=== PATIENT | male | born 1935 | race Caucasian/White ===

== ENCOUNTER 2017-10-13 02:09 | Inpatient (IN) | payer MEDICARE ==
[~2017-10-13] VITALS: Ht 160 cm; Wt 70.3 kg
[2017-10-13] VITALS (7 sets, daily range): BP systolic 121–161; BP diastolic 58–82
[2017-10-13] MEDS ORDERED: Nitroglycerin Subl 0.4mg tab SL ONE (02:15)
[2017-10-13] MEDS ORDERED: Aspirin Baby 81mg ORAL ONE (02:15)
[2017-10-13] MEDS ORDERED: ATORVASTATIN CA20 MG ORAL (02:19)
[2017-10-13] MEDS ORDERED: CEPHALEXIN500 MG ORAL (02:19)
--- NOTE | 2017-10-13 02:20 | Emergency Room Report ---
History of Present Illness General Source: Patient, EMS Present Illness HPI This is an 82-year-old male with a history of CAD with five-vessel bypass 4 years ago. Onset for week. He has been coughing productive of white sputum. Worse tonight. Blood pressure jumped up over 200. Per EMS he was wheezing and very tight. They gave him 2 rounds of albuterol. He said he fell better now. No swelling. No chest pain. Worse with exertion. Worse with lying flat. Allergies: Coded Allergies: No Known Allergies (Unverified , 10/13/17) Patient History Past Medical History: see triage record, old chart reviewed, HTN, DC, CAD Past Surgical History: CABG Pertinent Family History: none Social History: Denies: smoking Immunizations: other Reviewed Nursing Documentation: PMH: Agreed, PSxH: Agreed Review of Systems Eye: Denies: eye pain, blurred vision ENT: Denies: ear pain, nose congestion, throat swelling Respiratory: Reports: cough, shortness of breath, [place] Cardiovascular: Denies: chest pain, palpitations Gastrointestinal: Denies: abdominal pain, diarrhea, nausea, vomiting Musculoskeletal: Denies: back pain, joint pain Skin: Denies: rash Neurological: Denies: headache, numbness Endocrine: Denies: increased thirst, increased urine Hematologic/Lymphatic: Denies: easy bruising All Other Systems: negative except mentioned in HPI Physical Exam Sp02 EP Interpretation: reviewed, normal General Appearance: well appearing, alert, moderate distress Head: normocephalic, atraumatic Eyes: bilateral eye PERRL, bilateral eye EOMI ENT: hearing grossly normal, normal pharynx Neck: full range of motion, supple, no meningismus Respiratory: chest non-tender, respiratory distress, accessory muscle use, rales, wheezing Cardiovascular #1: regular rate, rhythm, no murmur Gastrointestinal: normal bowel sounds, non tender, no mass, no organomegaly, no bruit, non-distended Musculoskeletal: back normal, normal range of motion, swelling - Trace edema Psychiatric: mood/affect normal Skin: warm/dry Medical Decision Making Diagnostic Impression: Primary Impression: Respiratory distress Additional Impressions: Acute exacerbation of CHF (congestive heart failure) Qualified Codes: I50.9 - Heart failure, unspecified Acute bronchitis with bronchospasm ER Course Patient presents with respiratory distress. He has rales and wheezing. He diuresed well. He diuresed over a liter. [place] better now. Breathing treatment also help. Able to wean him off of oxygen to 2 L nasal cannula. Blood pressure also improved. Will admit for further workup. Differential include ACS, PE, dissection, pneumonia to name a few. Lab Results Impression labs with elevated BNP EKG Diagnostic Results Rate: normal Rhythm: NSR ST Segments: other - NSST changes ASA given to the pt in ED: Yes Rhythm Strip Diag. Results Rhythm Strip Time: 02:19 Rate: 85 Rhythm: NSR Chest X-Ray Diagnostic Results Chest X-Ray Diagnostic Results : Chest X-Ray Ordered: Yes # of Views/Limited/Complete: 1 View Indication: Shortness of Breath EP Interpretation: Yes Interpretation: no consolidation, no effusion, no pneumothorax, other - Cardiomegaly with vascular congestion Impression: Other - chf Electronically Signed by: Keith Wiley MD Status: improved Disposition: ADMITTED INPATIENT Condition: Serious KIETH WILEY M.D. Oct 13, 2017 02:20
[2017-10-13 03:35] LABS: BASOPHILS % (AUTO) 1.5 % (0.0-2.0); EOSINOPHILS % (AUTO) 4.9 % (0.0-3.0); HEMATOCRIT 31.1 % (42.0-52.0); HEMOGLOBIN 13.8 G/DL (14.2-18.0); LYMPHOCYTES % (AUTO) 32.7 % (20.0-45.0); MEAN CORPUSCULAR VOLUME 92 FL (80-99); MONOCYTES % (AUTO) 9.9 % (1.0-10.0); PLATELET COUNT 203 K/UL (150-450); RED BLOOD COUNT 3.39 M/UL (4.70-6.10); RED CELL DISTRIBUTION WIDTH 11.1 % (11.6-14.8); WHITE BLOOD COUNT 8.2 K/UL (4.8-10.8)
[2017-10-13 03:36] LABS: APPEARANCE,URINE CLEAR; BILIRUBIN, URINE NEGATIVE (NEGATIVE); COLOR,URINE PALE YELLOW; GLUCOSE, URINE (UA) NEGATIVE (NEGATIVE); KETONES,URINE NEGATIVE (NEGATIVE); LEUKOCYTE ESTERASE ,URINE NEGATIVE (NEGATIVE); NITRITE,URINE NEGATIVE (NEGATIVE); PH,URINE 6 (4.5-8.0); PROTEIN,URINE NEGATIVE (NEGATIVE); UROBILINOGEN,URINE NORMAL MG/DL (0.0-1.0)
[2017-10-13 03:40] LABS: ANION GAP 8 mmol/L (5-15); BLOOD UREA NITROGEN 20 mg/dL (7-18); CALCIUM 9.3 MG/DL (8.5-10.1); CARBON DIOXIDE 29 MMOL/L (21-32); CHLORIDE 102 MMOL/L (98-107); CREATININE 1.3 MG/DL (0.55-1.30); POTASSIUM 3.6 MMOL/L (3.5-5.1); SODIUM 139 MMOL/L (136-145)
[2017-10-13 03:53] LABS: ALANINE AMINOTRANSFERASE 8 U/L (12-78); ALBUMIN 3.4 G/DL (3.4-5.0); ALBUMIN/GLOBULIN RATIO 0.8 (1.0-2.7); ALKALINE PHOSPHATASE 75 U/L (46-116); ASPARTATE AMINO TRANSFERASE 20 U/L (15-37); BILIRUBIN,TOTAL 0.4 MG/DL (0.2-1.0); CKMB 3.1 NG/ML (0.0-3.6); CREATINE KINASE 120 U/L (26-308)
[2017-10-13] MEDS ORDERED: Solu-MEDROL 125mg Inj IVP ONE (04:00)
[2017-10-13] MEDS ORDERED: Albuterol/Ipratropium 3ml neb HHN PRN (07:00)
[2017-10-13] MEDS ORDERED: Miralax 17gm pkt ORAL PRN (07:00)
[2017-10-13] MEDS: Heparin 5000 units/ml inj SUBQ SCH ×2 (08:20→20:38)
--- NOTE | 2017-10-13 10:03 | Diagnostic Imaging Report ---
Indication: Dyspnea Comparison: None A single view chest radiograph was obtained. Findings: No definite infiltrate or pulmonary vascular congestion identified. Sternotomy noted. The heart is enlarged. The aorta is mildly enlarged consistent with atherosclerotic vascular disease. The bones are osteopenic. Impression: No acute disease
--- NOTE | 2017-10-13 12:11 | History and Physical ---
History of Present Illness General Date patient seen: Oct 13, 2017 Reason for Hospitalization: Dyspnea/Respdistress Present Illness HPI 82-year-old male with a history of CAD with five-vessel bypass 4 years ago, presented to ER with CC of coughing productive of white sputum. Worse tonight. His Blood pressure was over 200. Per EMS he was wheezing and very tight. They gave him 2 rounds of albuterol. . No chest pain. Worse with exertion. Worse with lying flat. Didn't have any fever and chills. Pt is admitted to telemetry for dyspnea and hypertensive emergency. Allergies: Coded Allergies: No Known Allergies (Unverified , 10/13/17) Medication History Scheduled Atorvastatin Calcium* (Atorvastatin Calcium*), 20 MG ORAL BEDTIME, (Reported) Cephalexin* (Keflex*), 500 MG ORAL EVERY 12 HOURS, (Reported) Patient History Healthcare decision maker Resuscitation status Full Code Advanced Directive on File Past Medical/Surgical History Past Medical/Surgical History: (1) CAD (coronary artery disease) (2) Hypertension Review of Systems Respiratory: Reports: cough, orthopnea, shortness of breath, wheezing All Other Systems: negative except mentioned in HPI Physical Exam General Appearance: WD/WN Lines, tubes and drains: peripheral, central line HEENT: normocephalic, atraumatic, PERRL Neck: normal alignment, supple, limited range of motion Respiratory/Chest: chest wall non-tender, normal breath sounds Cardiovascular/Chest: normal peripheral pulses, normal rate, regular rhythm Abdomen: normal bowel sounds, soft Genitourinary/Rectal: normal genital exam, normal rectal exam Extremities: normal range of motion Skin Exam: normal pigmentation 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, no motor/sensory deficits Last 24 Hour Vital Signs Date Time Temp Pulse Resp B/P (MAP) Pulse Ox O2 Delivery O2 Flow Rate FiO2 10/13/17 08:00 83 10/13/17 08:00 97.2 88 18 141/75 97 Nasal Cannula 2.0 97.2 10/13/17 06:13 98.2 79 20 151/64 99 Nasal Cannula 2.0 98.2 10/13/17 05:35 79 20 151/64 99 Nasal Cannula 2.0 10/13/17 03:47 83 23 121/68 100 Simple Mask 5.0 10/13/17 02:43 84 16 Simple Mask 5.0 10/13/17 02:43 98.2 84 16 161/69 97 Simple Mask 5.0 98.2 10/13/17 02:38 161/69 10/13/17 02:15 98.2 84 16 184/73 97 Simple Mask 5.0 98.2 Intake and Output 10/12/17 10/13/17 19:00 07:00 Intake Total 0 ml Output Total 1975 ml Balance -1975 ml Intake Oral 0 ml Output Urine Total 1975 ml Laboratory Tests Test 10/13/17 02:25 10/13/17 03:00 10/13/17 09:00 White Blood Count 8.2 K/UL (4.8-10.8) Red Blood Count 3.39 M/UL (4.70-6.10) L Hemoglobin 13.8 G/DL (14.2-18.0) L Hematocrit 31.1 % (42.0-52.0) L Mean Corpuscular Volume 92 FL (80-99) Mean Corpuscular Hemoglobin 40.7 PG (27.0-31.0) H Mean Corpuscular Hemoglobin Concent 44.3 G/DL (32.0-36.0) H Red Cell Distribution Width 11.1 % (11.6-14.8) L Platelet Count 203 K/UL (150-450) Mean Platelet Volume 8.6 FL (6.5-10.1) Neutrophils (%) (Auto) 51.0 % (45.0-75.0) Lymphocytes (%) (Auto) 32.7 % (20.0-45.0) Monocytes (%) (Auto) 9.9 % (1.0-10.0) Eosinophils (%) (Auto) 4.9 % (0.0-3.0) H Basophils (%) (Auto) 1.5 % (0.0-2.0) Prothrombin Time 10.3 SEC (9.30-11.50) Prothromb Time International Ratio 1.0 (0.9-1.1) Activated Partial Thromboplast Time 28 SEC (23-33) Sodium Level 139 MMOL/L (136-145) Potassium Level 3.6 MMOL/L (3.5-5.1) Chloride Level 102 MMOL/L (98-107) Carbon Dioxide Level 29 MMOL/L (21-32) Anion Gap 8 mmol/L (5-15) Blood Urea Nitrogen 20 mg/dL (7-18) H Creatinine 1.3 MG/DL (0.55-1.30) Estimat Glomerular Filtration Rate mL/min (>60) Glucose Level 113 MG/DL (74-106) H Calcium Level 9.3 MG/DL (8.5-10.1) Total Bilirubin 0.4 MG/DL (0.2-1.0) Aspartate Amino Transf (AST/SGOT) 20 U/L (15-37) Alanine Aminotransferase (ALT/SGPT) 8 U/L (12-78) L Alkaline Phosphatase 75 U/L (46-116) Total Creatine Kinase 120 U/L (26-308) Creatine Kinase MB 3.1 NG/ML (0.0-3.6) Creatine Kinase MB Relative Index 2.5 Troponin I 0.008 ng/mL (0.000-0.056) 0.012 ng/mL (0.000-0.056) Pro-B-Type Natriuretic Peptide 380 pg/mL (0-125) H Total Protein 7.5 G/DL (6.4-8.2) Albumin 3.4 G/DL (3.4-5.0) Globulin 4.1 g/dL Albumin/Globulin Ratio 0.8 (1.0-2.7) L Urine Color Pale yellow Urine Appearance Clear Urine pH 6 (4.5-8.0) Urine Specific [place] 1.010 (1.005-1.035) Urine Protein Negative (NEGATIVE) Urine Glucose (UA) Negative (NEGATIVE) Urine Ketones Negative (NEGATIVE) Urine Occult Blood Negative (NEGATIVE) Urine Nitrite Negative (NEGATIVE) Urine Bilirubin Negative (NEGATIVE) Urine Urobilinogen Normal MG/DL (0.0-1.0) Urine Leukocyte Esterase Negative (NEGATIVE) Height (Feet): 5 Height (Inches): 3.00 Weight (Pounds): 160 Medications Current Medications Medications (Trade) Dose Ordered Sig/Isma Route PRN Reason Start Time Stop Time Status Last Admin Dose Admin Acetaminophen (Tylenol) 650 mg Q4H PRN ORAL Fever 10/13/17 07:00 11/12/17 06:59 Albuterol/ Ipratropium (Albuterol/ Ipratropium) 3 ml Q4H PRN HHN Shortness of Breath 10/13/17 07:00 10/18/17 06:59 Atorvastatin Calcium (Lipitor) 20 mg BEDTIME ORAL 10/13/17 21:00 11/12/17 20:59 Dextrose (Dextrose 50%) STAT PRN IV Hypoglycemia 10/13/17 07:00 11/12/17 06:59 Furosemide (Lasix) 40 mg EVERY 8 HOURS IV 10/13/17 14:00 11/12/17 13:59 10/13/17 08:21 Heparin Sodium (Porcine) (Heparin 5000 units/ml) 5,000 units EVERY 12 HOURS SUBQ 10/13/17 09:00 11/12/17 08:59 10/13/17 08:20 Ondansetron HCl (Zofran) 4 mg Q6H PRN IVP Nausea & Vomiting 10/13/17 07:00 11/12/17 06:59 Polyethylene Glycol (Miralax) 17 gm DAILYPRN PRN ORAL Constipation 10/13/17 07:00 11/12/17 06:59 Temazepam (Restoril) 15 mg HSPRN PRN ORAL Insomnia 10/13/17 21:00 10/20/17 20:59 Assessment/Plan Problem List: (1) Acute respiratory failure ICD Codes: J96.00 - Acute respiratory failure, unspecified whether with hypoxia or hypercapnia SNOMED: 57905482 (2) Bronchitis ICD Codes: J40 - Bronchitis, not specified as acute or chronic SNOMED: 56879247 (3) Acute bronchitis with bronchospasm ICD Codes: J20.9 - Acute bronchitis, unspecified SNOMED: 74013652 (4) Hypertension ICD Codes: I10 - Essential (primary) hypertension SNOMED: 96126952 (5) CAD (coronary artery disease) ICD Codes: I25.10 - Atherosclerotic heart disease of [place] coronary artery without angina pectoris SNOMED: 59178434 Assessment/Plan respiratory treatment antitussives echo BP monitor cardio evaluation. TITA ALATORRE Oct 13, 2017 12:11
--- NOTE | 2017-10-13 12:34 | Cardiology Progress Note ---
Assessment/Plan Assessment/Plan [id number] cough bronchospasm viral uri ? post nasal drip hyperlipidemia cad s/p cabg b b use prostate cancer s/p resection hold bb uses arb for bp if needed will reviw echo repeat k ekg Objective Last 24 Hour Vital Signs Date Time Temp Pulse Resp B/P (MAP) Pulse Ox O2 Delivery O2 Flow Rate FiO2 10/13/17 08:00 83 10/13/17 08:00 97.2 88 18 141/75 97 Nasal Cannula 2.0 97.2 10/13/17 06:13 98.2 79 20 151/64 99 Nasal Cannula 2.0 98.2 10/13/17 05:35 79 20 151/64 99 Nasal Cannula 2.0 10/13/17 03:47 83 23 121/68 100 Simple Mask 5.0 10/13/17 02:43 84 16 Simple Mask 5.0 10/13/17 02:43 98.2 84 16 161/69 97 Simple Mask 5.0 98.2 10/13/17 02:38 161/69 10/13/17 02:15 98.2 84 16 184/73 97 Simple Mask 5.0 98.2 Intake and Output 10/12/17 10/13/17 19:00 07:00 Intake Total 0 ml Output Total 1975 ml Balance -1975 ml Intake Oral 0 ml Output Urine Total 1975 ml Laboratory Tests Test 10/13/17 02:25 10/13/17 03:00 10/13/17 09:00 White Blood Count 8.2 K/UL (4.8-10.8) Red Blood Count 3.39 M/UL (4.70-6.10) L Hemoglobin 13.8 G/DL (14.2-18.0) L Hematocrit 31.1 % (42.0-52.0) L Mean Corpuscular Volume 92 FL (80-99) Mean Corpuscular Hemoglobin 40.7 PG (27.0-31.0) H Mean Corpuscular Hemoglobin Concent 44.3 G/DL (32.0-36.0) H Red Cell Distribution Width 11.1 % (11.6-14.8) L Platelet Count 203 K/UL (150-450) Mean Platelet Volume 8.6 FL (6.5-10.1) Neutrophils (%) (Auto) 51.0 % (45.0-75.0) Lymphocytes (%) (Auto) 32.7 % (20.0-45.0) Monocytes (%) (Auto) 9.9 % (1.0-10.0) Eosinophils (%) (Auto) 4.9 % (0.0-3.0) H Basophils (%) (Auto) 1.5 % (0.0-2.0) Prothrombin Time 10.3 SEC (9.30-11.50) Prothromb Time International Ratio 1.0 (0.9-1.1) Activated Partial Thromboplast Time 28 SEC (23-33) Sodium Level 139 MMOL/L (136-145) Potassium Level 3.6 MMOL/L (3.5-5.1) Chloride Level 102 MMOL/L (98-107) Carbon Dioxide Level 29 MMOL/L (21-32) Anion Gap 8 mmol/L (5-15) Blood Urea Nitrogen 20 mg/dL (7-18) H Creatinine 1.3 MG/DL (0.55-1.30) Estimat Glomerular Filtration Rate mL/min (>60) Glucose Level 113 MG/DL (74-106) H Calcium Level 9.3 MG/DL (8.5-10.1) Total Bilirubin 0.4 MG/DL (0.2-1.0) Aspartate Amino Transf (AST/SGOT) 20 U/L (15-37) Alanine Aminotransferase (ALT/SGPT) 8 U/L (12-78) L Alkaline Phosphatase 75 U/L (46-116) Total Creatine Kinase 120 U/L (26-308) Creatine Kinase MB 3.1 NG/ML (0.0-3.6) Creatine Kinase MB Relative Index 2.5 Troponin I 0.008 ng/mL (0.000-0.056) 0.012 ng/mL (0.000-0.056) Pro-B-Type Natriuretic Peptide 380 pg/mL (0-125) H Total Protein 7.5 G/DL (6.4-8.2) Albumin 3.4 G/DL (3.4-5.0) Globulin 4.1 g/dL Albumin/Globulin Ratio 0.8 (1.0-2.7) L Urine Color Pale yellow Urine Appearance Clear Urine pH 6 (4.5-8.0) Urine Specific [place] 1.010 (1.005-1.035) Urine Protein Negative (NEGATIVE) Urine Glucose (UA) Negative (NEGATIVE) Urine Ketones Negative (NEGATIVE) Urine Occult Blood Negative (NEGATIVE) Urine Nitrite Negative (NEGATIVE) Urine Bilirubin Negative (NEGATIVE) Urine Urobilinogen Normal MG/DL (0.0-1.0) Urine Leukocyte Esterase Negative (NEGATIVE) CALLI MOBLEY Oct 13, 2017 12:34
[2017-10-13] MEDS ORDERED: Promethazine/Codeine 5ml UD ORAL PRN (13:15)
[2017-10-13] MEDS: Metoprolol Tartrate 50mg tab ORAL SCH (13:33)
--- NOTE | 2017-10-13 18:00 | Consultation ---
DATE OF CONSULTATION: 10/13/2017 CARDIOLOGY CONSULTATION CONSULTING PHYSICIAN: Edison Gonzalez M.D. REFERRING PHYSICIAN: Uche Silva M.D. REASON FOR REFERRAL: Shortness of breath and possible heart failure. HISTORY OF PRESENT ILLNESS: This is an elderly gentleman, who has apparently had an ill with some kind of viral infection at home approximately two weeks ago. He apparently contracted same symptoms, mainly with coughing and sputum production. This has been going on for some time now. However, over the past two days, he started having some wheezing and last night when he tried to lay down, he had significant amount of coughing that would not stop and subsequently even when he sat up, he continued to cough. He really does not have any shortness of breath. He denies having any shortness of breath. No PND. No orthopnea. He does not have any dyspnea on exertion. No pain, pressure, tightness, or heaviness in his chest that he had prior to his coronary artery bypass grafting at [facility] four years ago, but just significant amount of coughing. No fevers or chills. No night sweats. No body aches or pains. He had seen an ear, nose, and throat specialist initially that apparently ended up having a chest x-ray. He was told there was no evidence of pneumonia. At that time, the patient was not treated with any antibiotics, but he continued to worsen to the point that he finally called the paramedics last night because of his symptoms and brought to the emergency room here at [facility]. Concern about possibility of congestive heart failure was subsequently raised. The patient has had treatment. He is completely improved at his baseline right now and he wants to go home and he no longer has any coughing or wheezing, as he did last night and again, he denied any pain, pressure, tightness, or discomfort of any kind. No symptoms similar to his prior to coronary bypass grafting. 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 He has had a non-ST elevation myocardial infarction at that time. He does have a history of prostate cancer that was resected and he was fine. No stroke. No hepatitis or tuberculosis. No asthma or emphysema. No history of ulcers. No kidney problems, liver problems, thyroid problems, or anemia. He does have a history of arthritis. No HIV, AIDS, or blood clots. SOCIAL HISTORY: He does not smoke or drink at this time and never did. He used to work as a chiropractor. REVIEW OF SYSTEMS: GASTROINTESTINAL: He denies any nausea, vomiting, diarrhea, or constipation. No bloody or black stools. GENITOURINARY: He denies. He has one or two nocturic episodes at night. PULMONARY SYSTEM: Positive for coughing, wheezing, and sputum production. CONSTITUTIONAL: No fevers, chills, or night sweats. NEUROLOGIC: Negative. MUSCULOSKELETAL: Occasional aches and pains. PHYSICAL EXAMINATION: GENERAL: Shows him to be elderly gentleman, in no respiratory distress. VITAL SIGNS: Initial blood pressure 184/73 and right now is 141/75. HEENT: Unremarkable. NECK: Supple. There is no jugular venous distention. LUNGS: He has few crackles noted on the left side. There is no wheezing at this time on my examination. CARDIAC: Regular rate and rhythm. Increased P2 component. Faint holosystolic regurgitant murmur is noted. ABDOMEN: Soft and nontender. Positive bowel sounds. EXTREMITIES: There is no edema. Pulses are palpable, although those seemed to be decreased in the dorsalis pedis and radial bilaterally. LABORATORY DATA: His labs show white count of 8.2, hemoglobin 13.8, and platelet count of 203,000. His sodium is 139, potassium 3.6, chloride 102, bicarbonate 29, BUN of 20, creatinine 1.3, and glucose of 113. Troponin is negative on two separate occasions. ProBNP is only 380. His albumin of 3.4. INR 1.0 and a PTT of 28. His urinalysis is fairly unremarkable. A chest x-ray was performed in the emergency room. Official reading by radiologist today indicates no acute disease. No evidence of infiltrate or pulmonary vascular congestion. He does have a sternotomy and has an enlarged heart. The aorta is mildly enlarged consistent with atherosclerotic changes. His electrocardiogram shows normal sinus rhythm with leftward axis. No significant ST or T wave abnormalities from last night. No repeat EKG available from today. ASSESSMENT AND PLAN: 1. Probable viral upper respiratory tract infection with coughing, possibly postnasal drip. 2. Coronary disease, status post coronary artery bypass grafting. 3. Questionable heart failure with minimally if any abnormality on proBNP and negative chest x-ray. 4. History of hyperlipidemia. PLAN: Dr. Silva, this patient was seen in cardiac consultation. The patient feels fine at this time. His examination today does not show any wheezes. He does have some basilar crackles on the left side only and he has an echocardiogram pending. He does have some increased P2 component suggestive of pulmonary hypertension. Echocardiogram will be reviewed to see if any evidence of wall motion abnormalities or pulmonary hypertension. He has been on some beta-blockers, which may have made his coughing worse. In either case, he seems not to have any wheezing at this time. He is anxious to go home. He probably should walk around the nurse's station some. He did get some diuretics in the emergency room last night as well as some beta-agonist inhalers that may have been helping him with his symptoms. I will follow the patient along, and recommendations were provided depending on the outcomes recently, but the patient has Dr. Haque as canvas marker whom I talked with earlier today and I will communicate with after all his findings are completed for possibility of being discharged and followup with him as outpatient. It may be best to avoid beta-blockers and maybe use an ARB or MADONNA inhibitors for his blood pressure control especially if there is any issues with his echocardiogram. Dr. Silva, thank you for allowing me to participate in the care of this patient. Edison Gonzalez M.D. DR: AZAM JOB#: [id number] CC:
--- NOTE | 2017-10-13 18:07 | Cardiology Report ---
APPROVED REPORT EXAM: Two-dimensional and M-mode echocardiogram with Doppler and color Doppler. INDICATION LV FUNCTION M-Mode DIMENSIONS IVSd1.5 (0.7-1.1cm)Left Atrium (MM)3.2 (1.6-4.0cm) LVDd5.7 (3.5-5.6cm)Aortic Root3.6 (2.0-3.7cm) PWd1.2 (0.7-1.1cm)Aortic Cusp Exc.1.8 (1.5-2.0cm) IVSs1.9 cm LVDs3.8 (2.5-4.0cm) PWs1.5 cm Normal left ventricular chamber size, systolic function and wall motion except hypokinesis of the proximal to mid posterior and inferior mccarthy Left ventricular ejection fraction estimated to be 60-65 %. No evidence left ventricular hypertrophy. No evidence of pericardial effusion. Pleural effusion . All other chamber sizes is within normal limits. Focal aortic valve sclerosis with adequate cusp excursion. Mildly Thickened mitral valve leaflets with normal excursion. Mitral annulus and aortic root calcification. Pulmonic valve not well visualized. Normal tricuspid valve structure. IVC at normal size with physiologic collapse . A color flow and spectral Doppler study was performed and revealed: No aortic regurgitation. Trace mitral regurgitation. Mitral diastolic velocities suggest reduced left ventricular relaxation c/w mild LV diastolic dysfunction (Grade I ) Trace tricuspid regurgitation . Tricuspid systolic velocities suggests peak right ventricular systolic pressure of 19 mmHg, No Pulmonic regurgitation present.
--- NOTE | 2017-10-13 20:30 | Consultation ---
DATE OF CONSULTATION: 10/13/2017 HISTORY: The patient is an 82-year-old [place] male with a history of multiple medical problems including CAD and hypertension, COPD, who has been admitted to the hospital due to dyspnea and respiratory distress. The patient presented with anxiety the last night. The patient has anxiety, coughing, wheezing and stated that he has chest tightness and unable to relax. At times, he has panic attack-like symptoms. PAST PSYCHIATRIC HISTORY: He has a history of anxiety disorder, never been treated. PAST MEDICAL HISTORY: Significant for CAD and hypertension. ALLERGIES: No known drug allergies. SUBSTANCE ABUSE HISTORY: No known history of illicit drug use or alcohol. MENTAL STATUS EXAMINATION: The patient alert and oriented x4. Mood is in neutral during the evaluation. Affect is constricted. Congruent with mood. Thought process is concrete. Thought content, no suicidal or homicidal ideation. ASSESSMENT: AXIS I Anxiety disorder. AXIS II Deferred. AXIS III As above. AXIS IV Low. AXIS V Global assessment of functioning is 50. PLAN: 1. The patient may benefit from low-dose of SSRI. I was hesitant to prescribe Ativan as the patient has wheezing. 2. We will continue to follow and readjust the medications. Rosenda Butts M.D. DR: VIKTORIA JOB#: [id number] CC:
[2017-10-13] MEDS ORDERED: Atorvastatin 20mg tab ORAL SCH (21:00)
[2017-10-14] VITALS: BP 133/77
[2017-10-14 04:00] VITALS: BP 140/74
[2017-10-14 07:31] LABS: BASOPHILS % (AUTO) 0.6 % (0.0-2.0); EOSINOPHILS % (AUTO) 0.2 % (0.0-3.0); HEMOGLOBIN 14.3 G/DL (14.2-18.0); MEAN CORPUSCULAR VOLUME 91 FL (80-99); MONOCYTES % (AUTO) 8.3 % (1.0-10.0); PLATELET COUNT 205 K/UL (150-450); RED BLOOD COUNT 3.93 M/UL (4.70-6.10); RED CELL DISTRIBUTION WIDTH 10.8 % (11.6-14.8); WHITE BLOOD COUNT 11.8 K/UL (4.8-10.8)
[2017-10-14 07:50] LABS: ALBUMIN 3.2 G/DL (3.4-5.0); ANION GAP 7 mmol/L (5-15); BLOOD UREA NITROGEN 31 mg/dL (7-18); CARBON DIOXIDE 29 MMOL/L (21-32); CHLORIDE 103 MMOL/L (98-107); CREATININE 1.4 MG/DL (0.55-1.30); PHOSPHORUS 3.3 MG/DL (2.5-4.9); SODIUM 139 MMOL/L (136-145)
[2017-10-14 08:00] VITALS: BP 112/56
[2017-10-14] MEDS: Metoprolol Tartrate 50mg tab ORAL SCH (09:29)
[2017-10-14] MEDS: Heparin 5000 units/ml inj SUBQ SCH (09:34)
--- NOTE | 2017-10-14 09:50 | Diagnostic Imaging Report ---
Indication: Dyspnea Technique: One view of the chest Comparison: 10/13/2015 Findings: The heart is enlarged. The left costophrenic angle is obscured, small pleural effusion excludable. The remainder of the lungs and pleural spaces are clear. There is evidence of prior CABG. Impression: Possible small left pleural effusion Other unchanged findings over one day, as described
[2017-10-14 12:00] VITALS: BP 105/42
--- NOTE | 2017-10-14 13:01 | Diagnostic Imaging Report ---
APPROVED REPORT CPT Code: 82928 Present Symptoms Comments: Pain RIGHT LEG: Venous imaging reveals a patent deep venous system. There is no evidence of thrombus within the femoral, popliteal or tibial segments. The greater saphenous vein is also within normal limits. Doppler indicates normal spontaneous flow within these segments. LEFT LEG: Venous imaging reveals recanalized chronic thrombus in the superficial femoral vein. Large collateral vein noted anterior to the superficial femoral artery. The remainder of the deep venous system is within normal limits. There is no evidence of thrombus in the common femoral, popliteal or calf veins. The greater saphenous vein is also within normal limits. Doppler indicates normal spontaneous flow within these segments. There is no evidence of acute deep vein thrombosis.
--- NOTE | 2017-10-14 14:53 | General Progress Note ---
Assessment/Plan Status: stable Assessment/Plan Covering for Dr Cabrera (1) Acute respiratory failure ICD Codes: J96.00 - Acute respiratory failure, unspecified whether with hypoxia or hypercapnia SNOMED: 71414941 (2) Bronchitis ICD Codes: J40 - Bronchitis, not specified as acute or chronic SNOMED: 03741267 (3) Acute bronchitis with bronchospasm ICD Codes: J20.9 - Acute bronchitis, unspecified SNOMED: 91571470 (4) Hypertension ICD Codes: I10 - Essential (primary) hypertension SNOMED: 41227545 (5) CAD (coronary artery disease) ICD Codes: I25.10 - Atherosclerotic heart disease of [place] coronary artery without angina pectoris SNOMED: 13613156 Assessment/Plan Patient is advised against AMA. Current management. will monitor peak in wbc count Subjective Allergies: Coded Allergies: No Known Allergies (Unverified , 10/13/17) Objective Last 24 Hour Vital Signs Date Time Temp Pulse Resp B/P (MAP) Pulse Ox O2 Delivery O2 Flow Rate FiO2 10/14/17 09:29 84 126/70 10/14/17 08:00 97.9 89 20 112/56 95 Room Air 97.9 10/14/17 07:54 87 16 Room Air 21 10/14/17 04:00 Room Air 10/14/17 04:00 83 10/14/17 04:00 97.7 77 20 140/74 97 97.7 10/14/17 00:00 77 10/14/17 00:00 97.0 77 20 133/77 96 Room Air 97.0 10/13/17 20:00 96.4 70 18 132/58 96 Room Air 96.4 10/13/17 20:00 72 10/13/17 19:30 71 20 Room Air 21 10/13/17 16:00 97.0 94 17 142/82 95 Room Air 2.0 97.0 10/13/17 16:00 78 Intake and Output 10/13/17 10/14/17 19:00 07:00 Intake Total 900 ml Balance 900 ml Other 900 ml # Voids 2 3 # Bowel Movements 1 Laboratory Tests 10/14/17 06:55: White Blood Count 11.8H, Red Blood Count 3.93L, Hemoglobin 14.3, Hematocrit 36.0L, Mean Corpuscular Volume 91, Mean Corpuscular Hemoglobin 36.3H, Mean Corpuscular Hemoglobin Concent 39.6H, Red Cell Distribution Width 10.8L, Platelet Count 205, Mean Platelet Volume 9.1, Neutrophils (%) (Auto) 72.0, Lymphocytes (%) (Auto) 19.0L, Monocytes (%) (Auto) 8.3, Eosinophils (%) (Auto) 0.2, Basophils (%) (Auto) 0.6, Sodium Level 139, Potassium Level 4.0, Chloride Level 103, Carbon Dioxide Level 29, Anion Gap 7, Blood Urea Nitrogen 31H, Creatinine 1.4H, Estimat Glomerular Filtration Rate , Glucose Level 115H, Calcium Level 9.0, Phosphorus Level 3.3, Magnesium Level 1.9, Troponin I 0.051, Pro-B-Type Natriuretic Peptide 770H, Albumin 3.2L Height (Feet): 5 Height (Inches): 3.00 Weight (Pounds): 155 Esdras Santana MD Oct 14, 2017 14:53
[2017-10-14] MEDS ORDERED: Levofloxacin 250mg/D5W 50ml IVPB SCH (15:00)
--- NOTE | 2017-10-14 16:02 | Cardiology Report ---
APPROVED REPORT EKG Measurement Heart [id number] Normal sinus rhythm Left axis deviation Minimal voltage criteria for LVH, may be normal variant Possible Lateral infarct, age undetermined Inferior infarct, age undetermined Abnormal ECG
[2017-10-14] MEDS ORDERED: Tubing IV Secondary IV ONE (17:46)
[2017-10-14] MEDS ORDERED: NS 275ml ONE (17:46)
--- NOTE | 2017-10-14 20:01 | Progress Note ---
DATE: 10/14/2017 SUBJECTIVE: The patient is calmer, more cooperative. Today is less anxiety, it appears that the anxiety was in the context of his chronic obstructive pulmonary disease and coughing. The coughing was due to his medical condition and he is doing better now, less anxious, more pleasant. MENTAL STATUS EXAMINATION: Alert and oriented x4. Farsi speaking. Mood is neutral. Affect is constricted. Congruent with mood. Thought process is concrete. Thought content, no suicidal or homicidal ideations. ASSESSMENT: Anxiety due to general medical condition, improved. PLAN: 1. We will continue the current medication. 2. Provide the patient with supportive therapy and reality orientation. Rosenda Butts M.D. DR: Nataly JOB#: [id number] CC:
--- NOTE | 2017-10-15 18:00 | Discharge Summary ---
Discharge Summary Hospital Course Date of Admission Oct 13, 2017 at 04:19 Date of Discharge Oct 14, 2017 at 17:00 Admitting Diagnosis CHF, bronchitis. HPI Gopal Bustamante is a 82 year old male who was admitted on Oct 13, 2017 at 04: 19 for Congestive Heart Failure, Bronchitis Hospital Course [id number] Discharge Discharge Disposition Patient left AMA Discharge Diagnoses: Carlyn Santana NP Oct 15, 2017 18:00
--- NOTE | 2017-10-16 15:15 | Discharge Summary 2 SIG ---
DATE OF ADMISSION: 10/13/2017 DATE OF DISCHARGE: 10/14/2017 CONSULTANTS: 1. Edison Gonzalez M.D. 2. Rosenda Butts M.D. BRIEF HOSPITAL COURSE: The patient is an 82-year-old male with history of coronary artery disease with five-vessel bypass four years ago presented to the ER complaining of cough, productive of white sputum that got worse. Per EMS, he was wheezing and breath sounds were very tight. He was given two rounds of albuterol. On evaluation at ED, he was given respiratory treatment. Blood pressure was elevated to 180 systolic. Chest x-ray done showed no acute disease. EKG was in normal sinus rhythm. BNP was 380. He was admitted for acute respiratory failure. He was initially on a simple mask and was tapered down to nasal cannula. He was given respiratory treatment and was started on antitussives. He underwent cardiac evaluation. EKG did not show any ST-T wave abnormalities with normal sinus rhythm with leftward axis. He was given metoprolol and was continued on Lipitor. He had anxiety disorder and was given low-dose SSRI. Full treatment was not carried out as the patient signed out against medical advice. FINAL DIAGNOSES: 1. Acute respiratory failure, resolved. 2. Bronchitis. 3. Hypertension. 4. Coronary artery disease. 5. Anxiety disorder. 6. Probable viral upper respiratory infection. 7. Questionable heart failure. DISPOSITION: The patient left AMA. Esdras Santana M.D. I have been assigned to dictate discharge summary on this account and I was not involved in the patient's management. Carlyn Santana N.P. DR: JOSH JOB#: [id number] CC: [id number]
== END 2017-10-14 17:00 | disposition left against medical advice (07) | DRG 189 ==
LOC: EDBD 02:09 → EMR 02:44 → EDBEDREQ 04:05 → 2E 04:19 → EDBEDREQ 04:55 → 2E 06:17
DX: J96.00 Acute respiratory failure, unspecified whether with hypoxia or hypercapnia (principal); Z95.1 Presence of aortocoronary bypass graft; I50.9 Heart failure, unspecified; I10 Essential (primary) hypertension; J20.9 Acute bronchitis, unspecified; I25.10 Atherosclerotic heart disease of native coronary artery without angina pectoris; J06.9 Acute upper respiratory infection, unspecified; Z85.46 Personal history of malignant neoplasm of prostate; F41.9 Anxiety disorder, unspecified; I25.2 Old myocardial infarction; E78.5 Hyperlipidemia, unspecified
CPT/HCPCS: 36415; 71045; 80048; 80053; 80069; 81003; 82550; 82553; 83735; 83880; 84484; 85025; 85610; 85730; 87070; 87205; 93005; 93306; 93970; 94664; 99285